=== PATIENT | male | born 1975 | race African-American/Black ===

== ENCOUNTER 2023-11-22 17:14 | Inpatient (IN) | payer OTHER ==
[~2023-11-22] VITALS: Ht 180.3 cm; Wt 105.2 kg
[2023-11-22 18:35] LABS: BASOPHILS % (AUTO) 0.3 % (0.0-2.0); EOSINOPHILS % (AUTO) 0.3 % (0.0-6.0); HEMATOCRIT 41 % (39-51); HEMOGLOBIN 13.5 g/dL (13.5-17.5); LYMPHOCYTES # (AUTO) 0.6 K/uL (0.8-4.8); LYMPHOCYTES % (AUTO) 4.8 % (20.0-44.0); MEAN CORPUSCULAR HEMOGLOBIN 26 PG (26.0-33.0); MEAN CORPUSCULAR HGB CONC 33 g/dl (31.0-36.0); MEAN CORPUSCULAR VOLUME 79 fL (80-96); MONOCYTES # (AUTO) 0.4 K/uL (0.1-1.30); NEUTROPHILS # (AUTO) 10.7 K/uL (1.8-8.9); NEUTROPHILS % (AUTO) 91.6 % (43.0-81.0); PLATELET COUNT (AUTO) 275 K/uL (150-450); WHITE BLOOD COUNT (AUTO) 11.7 K/uL (4.3-11.0)
[2023-11-22] MEDS ORDERED: CT SWABBABLE VALVE TRANS SET 1 EA INFUS.SET MC ONE (18:54)
[2023-11-22] MEDS ORDERED: IOHEXOL-300 100 ML VIAL IV ONE (18:54)
[2023-11-22] MEDS ORDERED: IV NS 0.9% 250 ML IV ONE (18:55)
[2023-11-22 19:09] LABS: BILIRUBIN,DIRECT 0.2 mg/dL (0.0-0.2); BILIRUBIN,TOTAL 0.4 mg/dL (0.2-1.0); CALCIUM, SERUM 9.5 mg/dL (8.5-10.1); CREATININE 1.3 mg/dL (0.6-1.3); TOTAL PROTEIN, SERUM 8.2 g/dL (6.4-8.2)
[2023-11-22 19:10] LABS: APPEARANCE,URINE CLEAR (CLEAR); BILIRUBIN,URINE NEGATIVE (NEGATIVE); BLOOD, URINE NEGATIVE Ery/uL (NEGATIVE); COLOR,URINE YELLOW (YELLOW); KETONES,URINE NEGATIVE (NEGATIVE); LEUKOCYTE ESTERASE ,URINE NEGATIVE (NEGATIVE); NITRITE, URINE NEGATIVE (NEGATIVE); PH,URINE 5.5 (5.0-8.0); PROTEIN,URINE NEGATIVE (NEGATIVE); UGLUCOSE NEGATIVE (NEGATIVE); UROBILINOGEN,URINE 0.2 EU/dL (0.2)
[2023-11-22] MEDS ORDERED: CEFEPIME 1 GM VIAL ONE (22:02)
[2023-11-22] MEDS: CEFEPIME 1 GM in IV D5W 50 ML IV ONE (22:03)
[2023-11-22 22:42] VITALS: BP 112/59; TEMP 101.1; O2SAT 97
[2023-11-22 22:55] VITALS: BP 123/57; TEMP 101.3; O2SAT 96
[2023-11-22] MEDS: CEFTRIAXONE 1GM BAG (ER ONLY) 50 ML IV ONE (23:38)
[2023-11-22] MEDS: IV NS 0.9% 1,000 ML IV PRN (23:41)
[2023-11-22] MEDS: ACETAMINOPHEN 325 MG TABLET PO PRN (23:41)
[2023-11-22] MEDS: CEFTRIAXONE 1 G in IV D5W 50 ML IV SCH (23:41)
[2023-11-23 07:02] LABS: INR 1.15 (0.91-1.10); PARTIAL THROMBOPLASTIN TIME 28.5 SEC (24.3-34.3); PROTHROMBIN TIME 12.1 SECS (9.2-11.1)
[2023-11-23 07:21] LABS: BASOPHILS % (AUTO) 0.2 % (0.0-2.0); EOSINOPHILS # (AUTO) 0.2 K/uL (0.0-0.7); HEMATOCRIT 40 % (39-51); HEMOGLOBIN 13.2 g/dL (13.5-17.5); LYMPHOCYTES # (AUTO) 1.1 K/uL (0.8-4.8); LYMPHOCYTES % (AUTO) 5.7 % (20.0-44.0); MEAN CORPUSCULAR HEMOGLOBIN 26 PG (26.0-33.0); MEAN CORPUSCULAR HGB CONC 33 g/dl (31.0-36.0); MEAN CORPUSCULAR VOLUME 79 fL (80-96); MONOCYTES # (AUTO) 0.9 K/uL (0.1-1.30); MONOCYTES % (AUTO) 4.5 % (2.0-12.0); NEUTROPHILS # (AUTO) 16.7 K/uL (1.8-8.9); NEUTROPHILS % (AUTO) 88.6 % (43.0-81.0); PLATELET COUNT (AUTO) 68 K/uL (150-450); RED BLOOD CELL COUNT(AUTO) 5.05 MIL/uL (4.5-6.0); RED CELL DISTRIBUTION WIDTH 15.3 % (11.5-15.0); WHITE BLOOD COUNT (AUTO) 18.8 K/uL (4.3-11.0)
[2023-11-23 08:00] VITALS: BP 108/60; TEMP 100; O2SAT 96
[2023-11-23] MEDS ORDERED: AMLO10TA4 PO (08:24)
[2023-11-23] MEDS ORDERED: LOSA1TAB39 PO (08:24)
[2023-11-23] MEDS ORDERED: VALA10002 PO (08:24)
[2023-11-23 08:43] LABS: CALCIUM, SERUM 8.6 mg/dL (8.5-10.1); CREATININE 1.3 mg/dL (0.6-1.3); MAGNESIUM 1.7 mg/dL (1.8-2.4); PHOSPHORUS 4.9 mg/dL (2.5-4.9); POTASSIUM 3.4 mmol/L (3.5-5.1)
[2023-11-23] MEDS: Magnesium 1GM/D5W 100ML PREMIX 100 ML IV SCH (09:25)
[2023-11-23] MEDS: PANTOPRAZOLE 40 MG VIAL IV SCH (09:25)
[2023-11-23] MEDS ORDERED: BACITRACIN ZINC OINT PACKET 1 EA PACKET TP ONE (12:27)
[2023-11-23] MEDS ORDERED: BUPIVACAINE 0.5 % PF 150 MG/30 ML VIAL ONE (12:27)
[2023-11-23] MEDS ORDERED: LIDOCAINE 1%-EPI 1:100,000 20 ML VIAL ONE (12:27)
[2023-11-23] MEDS ORDERED: ANESTHESIA TRAY IN PYXIS 1 EA TRAY MC ONE (12:27)
[2023-11-23] MEDS: PIPERACILLIN /TAZOBACTAM 3.375 G in IV D5W 50 ML IV SCH (12:33)
[2023-11-23] MEDS: POTASSIUM CL. PREMIX PERIPHER. 50 ML IV SCH (13:08)
[2023-11-23 13:10] LABS: BASOPHILS % (AUTO) 0.1 % (0.0-2.0); EOSINOPHILS % (AUTO) 0.2 % (0.0-6.0); HEMATOCRIT 38 % (39-51); HEMOGLOBIN 12.3 g/dL (13.5-17.5); LYMPHOCYTES # (AUTO) 1.1 K/uL (0.8-4.8); LYMPHOCYTES % (AUTO) 6.8 % (20.0-44.0); MEAN CORPUSCULAR HEMOGLOBIN 26 PG (26.0-33.0); MEAN CORPUSCULAR HGB CONC 33 g/dl (31.0-36.0); MEAN CORPUSCULAR VOLUME 79 fL (80-96); MONOCYTES # (AUTO) 0.7 K/uL (0.1-1.30); MONOCYTES % (AUTO) 4.1 % (2.0-12.0); NEUTROPHILS # (AUTO) 14.9 K/uL (1.8-8.9); NEUTROPHILS % (AUTO) 88.8 % (43.0-81.0); PLATELET COUNT (AUTO) 255 K/uL (150-450); RED BLOOD CELL COUNT(AUTO) 4.78 MIL/uL (4.5-6.0); RED CELL DISTRIBUTION WIDTH 15.4 % (11.5-15.0); WHITE BLOOD COUNT (AUTO) 16.7 K/uL (4.3-11.0)
[2023-11-23 13:30] LABS: ALBUMIN 3.2 g/dL (3.4-5.0); BILIRUBIN,TOTAL 0.6 mg/dL (0.2-1.0); CALCIUM, SERUM 9.1 mg/dL (8.5-10.1); CREATININE 1.3 mg/dL (0.6-1.3); MAGNESIUM 2.6 mg/dL (1.8-2.4); POTASSIUM 3.4 mmol/L (3.5-5.1); TOTAL PROTEIN, SERUM 7.4 g/dL (6.4-8.2)
[2023-11-23] MEDS: MORPHINE SULFATE INJ 2 MG/ML DISP.SYRIN IV PRN (14:43)
[2023-11-23 16:00] VITALS: BP 117/83; TEMP 99.7; O2SAT 94
[2023-11-23] MEDS ORDERED: MIDAZOLAM HCL 2 MG/2ML VIAL ONE (17:21)
[2023-11-23] MEDS ORDERED: FENTANYL PF 100MCG/2ML AMPUL ONE (17:21)
[2023-11-23] MEDS ORDERED: ROCURONIUM BROMIDE 50 MG/5 ML ONE (17:21)
[2023-11-23 19:45] VITALS: BP 129/69; TEMP 97.9; O2SAT 95
[2023-11-23 20:00] VITALS: BP_SYST 129; BP_SYST 131; BP_DIAS 69; BP_DIAS 76; TEMP 97.8; TEMP 97.9; O2SAT 95; O2SAT 96
[2023-11-23 20:15] VITALS: BP 131/81; TEMP 98; O2SAT 98
[2023-11-23 20:30] VITALS: BP 124/77; TEMP 97.7; O2SAT 96
[2023-11-24 07:30] VITALS: BP 127/81; TEMP 98.8; O2SAT 94
[2023-11-24 09:11] LABS: BASOPHILS % (AUTO) 0.1 % (0.0-2.0); HEMATOCRIT 36 % (39-51); HEMOGLOBIN 11.8 g/dL (13.5-17.5); LYMPHOCYTES # (AUTO) 0.4 K/uL (0.8-4.8); MEAN CORPUSCULAR HEMOGLOBIN 26 PG (26.0-33.0); MEAN CORPUSCULAR HGB CONC 33 g/dl (31.0-36.0); MEAN CORPUSCULAR VOLUME 79 fL (80-96); MONOCYTES # (AUTO) 0.4 K/uL (0.1-1.30); MONOCYTES % (AUTO) 2.8 % (2.0-12.0); NEUTROPHILS # (AUTO) 13.9 K/uL (1.8-8.9); NEUTROPHILS % (AUTO) 94.1 % (43.0-81.0); PLATELET COUNT (AUTO) 249 K/uL (150-450); RED BLOOD CELL COUNT(AUTO) 4.57 MIL/uL (4.5-6.0); RED CELL DISTRIBUTION WIDTH 15.3 % (11.5-15.0); WHITE BLOOD COUNT (AUTO) 14.7 K/uL (4.3-11.0)
[2023-11-24 09:33] LABS: ALBUMIN 2.9 g/dL (3.4-5.0); BILIRUBIN,TOTAL 0.5 mg/dL (0.2-1.0); CALCIUM, SERUM 8.7 mg/dL (8.5-10.1); CREATININE 1.3 mg/dL (0.6-1.3); TOTAL PROTEIN, SERUM 7.2 g/dL (6.4-8.2)
[2023-11-24] MEDS: ONDANSETRON HCL/PF 4 MG/2 ML VIAL IVP PRN (10:41)
[2023-11-24] MEDS: PIPERACILLIN /TAZOBACTAM 3.375 G in IV D5W 100 ML IV SCH (13:42)
[2023-11-24 16:00] VITALS: BP 135/86; TEMP 99.1; O2SAT 98
[2023-11-24] MEDS: SIMETHICONE 80 MG TAB.CHEW PO PRN (18:33)
[2023-11-24 21:11] VITALS: BP 146/85; TEMP 98.6
[2023-11-25 07:13] LABS: BASOPHILS % (AUTO) 0.1 % (0.0-2.0); EOSINOPHILS % (AUTO) 0.1 % (0.0-6.0); HEMATOCRIT 43 % (39-51); HEMOGLOBIN 14.2 g/dL (13.5-17.5); LYMPHOCYTES # (AUTO) 0.8 K/uL (0.8-4.8); LYMPHOCYTES % (AUTO) 5.5 % (20.0-44.0); MEAN CORPUSCULAR HEMOGLOBIN 26 PG (26.0-33.0); MEAN CORPUSCULAR HGB CONC 33 g/dl (31.0-36.0); MEAN CORPUSCULAR VOLUME 78 fL (80-96); MONOCYTES # (AUTO) 0.6 K/uL (0.1-1.30); MONOCYTES % (AUTO) 3.9 % (2.0-12.0); NEUTROPHILS # (AUTO) 13.2 K/uL (1.8-8.9); NEUTROPHILS % (AUTO) 90.4 % (43.0-81.0); PLATELET COUNT (AUTO) 308 K/uL (150-450); RED BLOOD CELL COUNT(AUTO) 5.53 MIL/uL (4.5-6.0); RED CELL DISTRIBUTION WIDTH 15.9 % (11.5-15.0); WHITE BLOOD COUNT (AUTO) 14.6 K/uL (4.3-11.0)
[2023-11-25 07:30] VITALS: BP 127/83; TEMP 98.1; O2SAT 100
[2023-11-25 07:33] LABS: BILIRUBIN,DIRECT 0.3 mg/dL (0.0-0.2); BILIRUBIN,TOTAL 0.7 mg/dL (0.2-1.0); CALCIUM, SERUM 9.2 mg/dL (8.5-10.1); CREATININE 1.1 mg/dL (0.6-1.3); MAGNESIUM 2.7 mg/dL (1.8-2.4); POTASSIUM 3.7 mmol/L (3.5-5.1); TOTAL PROTEIN, SERUM 8.1 g/dL (6.4-8.2)
[2023-11-25 07:52] LABS: ALBUMIN 3.1 g/dL (3.4-5.0)
[2023-11-25] MEDS: PANTOPRAZOLE 40 MG TABLET.DR PO SCH (08:12)
[2023-11-25] MEDS ORDERED: HYDROCODONE/APAP 5/325MG TABLET PO PRN (09:30)
[2023-11-25 16:00] VITALS: BP 123/81; TEMP 98.4; O2SAT 98
[2023-11-25 20:00] VITALS: BP 128/69; TEMP 98.8; O2SAT 99
[2023-11-26 07:03] LABS: BASOPHILS % (AUTO) 0.3 % (0.0-2.0); EOSINOPHILS # (AUTO) 0.2 K/uL (0.0-0.7); EOSINOPHILS % (AUTO) 1.9 % (0.0-6.0); HEMATOCRIT 35 % (39-51); HEMOGLOBIN 11.9 g/dL (13.5-17.5); LYMPHOCYTES # (AUTO) 0.9 K/uL (0.8-4.8); MEAN CORPUSCULAR HEMOGLOBIN 26 PG (26.0-33.0); MEAN CORPUSCULAR HGB CONC 34 g/dl (31.0-36.0); MEAN CORPUSCULAR VOLUME 78 fL (80-96); MONOCYTES # (AUTO) 0.6 K/uL (0.1-1.30); MONOCYTES % (AUTO) 7.6 % (2.0-12.0); NEUTROPHILS # (AUTO) 6.8 K/uL (1.8-8.9); NEUTROPHILS % (AUTO) 79.2 % (43.0-81.0); PLATELET COUNT (AUTO) 276 K/uL (150-450); RED BLOOD CELL COUNT(AUTO) 4.53 MIL/uL (4.5-6.0); RED CELL DISTRIBUTION WIDTH 15.5 % (11.5-15.0); WHITE BLOOD COUNT (AUTO) 8.5 K/uL (4.3-11.0)
[2023-11-26 07:16] LABS: ALBUMIN 2.5 g/dL (3.4-5.0); BILIRUBIN,DIRECT 0.3 mg/dL (0.0-0.2); BILIRUBIN,TOTAL 0.6 mg/dL (0.2-1.0); CALCIUM, SERUM 8.8 mg/dL (8.5-10.1); CREATININE 1.2 mg/dL (0.6-1.3); MAGNESIUM 2.4 mg/dL (1.8-2.4); PHOSPHORUS 3.5 mg/dL (2.5-4.9); POTASSIUM 3.3 mmol/L (3.5-5.1); TOTAL PROTEIN, SERUM 6.1 g/dL (6.4-8.2)
[2023-11-26 08:00] VITALS: BP 128/79; TEMP 98.9; O2SAT 100
[2023-11-26] MEDS: POTASSIUM CHLORIDE 20 MEQ TAB.PRT.SR PO SCH (09:21)
[2023-11-26 16:10] VITALS: BP 127/75; TEMP 98.1; O2SAT 96
[2023-11-26 21:05] VITALS: BP 139/78; TEMP 99.1; O2SAT 96
[2023-11-27 08:00] VITALS: BP 129/81; TEMP 99.3; O2SAT 96
[2023-11-27 10:18] LABS: CREATININE 1.4 mg/dL (0.6-1.3); POTASSIUM 3.2 mmol/L (3.5-5.1)
[2023-11-27] MEDS ORDERED: AMOX-430 PO (10:22)
[2023-11-27] MEDS ORDERED: ONDA4TAB11 PO (10:22)
[2023-11-27] MEDS ORDERED: HYDR-3972 PO (10:22)
[2023-11-27 10:24] LABS: ALBUMIN 2.7 g/dL (3.4-5.0); BILIRUBIN,TOTAL 0.6 mg/dL (0.2-1.0); TOTAL PROTEIN, SERUM 6.8 g/dL (6.4-8.2)
[2023-11-27 10:39] LABS: BASOPHILS % (AUTO) 0.2 % (0.0-2.0); EOSINOPHILS # (AUTO) 0.2 K/uL (0.0-0.7); HEMATOCRIT 38 % (39-51); HEMOGLOBIN 12.5 g/dL (13.5-17.5); LYMPHOCYTES # (AUTO) 0.8 K/uL (0.8-4.8); MEAN CORPUSCULAR HEMOGLOBIN 26 PG (26.0-33.0); MEAN CORPUSCULAR HGB CONC 33 g/dl (31.0-36.0); MEAN CORPUSCULAR VOLUME 78 fL (80-96); MONOCYTES # (AUTO) 0.6 K/uL (0.1-1.30); MONOCYTES % (AUTO) 7.5 % (2.0-12.0); NEUTROPHILS # (AUTO) 5.8 K/uL (1.8-8.9); NEUTROPHILS % (AUTO) 78.3 % (43.0-81.0); PLATELET COUNT (AUTO) 313 K/uL (150-450); RED BLOOD CELL COUNT(AUTO) 4.84 MIL/uL (4.5-6.0); RED CELL DISTRIBUTION WIDTH 15.4 % (11.5-15.0); WHITE BLOOD COUNT (AUTO) 7.4 K/uL (4.3-11.0)
[2023-11-27] MEDS: POTASSIUM CHLORIDE 20 MEQ TAB.PRT.SR PO ONE (12:21)
== END 2023-11-27 12:49 | disposition home or self-care (01) | DRG 853 ==
LOC: ER 17:14 → MED 22:05
PROVIDERS: ADMIT Nurse Practitioner Acute Care; ATTEND Nurse Practitioner Family
PROC: 0DTJ4ZZ Resection of Appendix, Percutaneous Endoscopic Approach (ICD-10-PCS; principal; 2023-11-23)
DX: A41.9 Sepsis, unspecified organism (principal); K35.33 Acute appendicitis with perforation, localized peritonitis, and gangrene, with abscess; D68.59 Other primary thrombophilia; E66.01 Morbid (severe) obesity due to excess calories; E87.6 Hypokalemia; K38.1 Appendicular concretions; I10 Essential (primary) hypertension
CPT/HCPCS: 36415; 80048-TC; 80053-TC; 80076-TC; 83690-TC; 83735-TC; 84100-TC; 85025-TC; 85730-TC; 86850-TC; 87040-TC; 88304-TC; A4223; C9113; G0378; J0330; J0690; J0692; J0696; J1100; J2250; J2270; J2405; J2543; J2704; J3010; J3475; J3480; J3490; J7030; J7050; J7060; Q9967